=== PATIENT | female | born 1960 | race Caucasian/White ===

== ENCOUNTER 2024-04-11 06:11 | Emergency (ER) | payer MEDICARE, OTHER ==
[2024-04-11 06:21] LABS: APPEARANCE,URINE CLEAR (CLEAR); BILIRUBIN,URINE NEGATIVE (NEGATIVE); COLOR,URINE YELLOW (YELLOW); GLUCOSE,URINE 500 mg/dL (NEGATIVE); KETONES,URINE NEGATIVE (NEGATIVE); LEUKOCYTE ESTERASE,URINE NEGATIVE (NEGATIVE); NITRITE,URINE NEGATIVE (NEGATIVE); OCCULT BLOOD,URINE NEGATIVE (NEGATIVE); PH,URINE 5.5 (5.0-8.0); PROTEIN,URINE NEGATIVE (NEGATIVE); UROBILINOGEN,URINE 0.2 EU/dL (0.2)
== END 2024-04-11 06:51 | disposition home or self-care (01) ==
LOC: VM.ED 06:11
DX: R35.0 Frequency of micturition (principal); E11.9 Type 2 diabetes mellitus without complications
CPT/HCPCS: 81003; 87086; 87147; 99283

== ENCOUNTER 2025-04-13 08:00 | Emergency (ER) | payer MEDICARE, OTHER ==
[2025-04-13 08:26] LABS: APPEARANCE,URINE SLIGHTLY CLOUDY (CLEAR); GLUCOSE,URINE 500 mg/dL (NEGATIVE); OCCULT BLOOD,URINE MODERATE (NEGATIVE)
[2025-04-13 08:35] LABS: SQUAMOUS EPITHELIAL CELLS,UR MODERATE /HPF (NOT SEEN)
== END 2025-04-13 08:49 | disposition home or self-care (01) ==
LOC: VM.ED 08:00
DX: N39.0 Urinary tract infection, site not specified (principal); Z79.899 Other long term (current) drug therapy; E11.9 Type 2 diabetes mellitus without complications
CPT/HCPCS: 81001; 87086; 87088; 87186; 99283

== ENCOUNTER 2025-04-15 23:20 | Emergency (ER) | payer MEDICARE, OTHER ==
[2025-04-16] MEDS: valACYclovir 1,000 MG Tab PO SCH (00:03)
[2025-04-16] MEDS: valACYclovir 1,000 MG Tab PO ONE (00:07)
== END 2025-04-16 00:18 | disposition home or self-care (01) ==
LOC: VM.ED 23:20
DX: A60.00 Herpesviral infection of urogenital system, unspecified (principal); E11.9 Type 2 diabetes mellitus without complications; Z79.899 Other long term (current) drug therapy
CPT/HCPCS: 87529; 99283; A9270-GY